=== PATIENT | female | born 1970 | race Caucasian/White ===

== ENCOUNTER 2017-08-04 03:00 | Emergency (ER) | payer MEDICARE, MEDICAID ==
[~2017-08-04] VITALS: Ht 180.3 cm; Wt 99.8 kg
[2017-08-04 04:50] LABS: Acetaminophen < 2.0 ug/mL (10-30)
[2017-08-04 08:32] LABS: Basophils # (auto) 0 uL; Basophils % (auto) 0.6 % (0.0-2.0); Eosinophils # (auto) 0.1 uL; Eosinophils % (auto) 0.9 % (0.0-7.0); Hemoglobin 12.5 g/dL (12.2-16.2); Lymphocytes # (auto) 1.7 uL; Lymphocytes % (auto) 22.4 % (10.0-50.0); Mean Corpuscular Hgb Conc. 32.1 g/dL (32.0-36.0); Mean Corpuscular Volume 96.5 fL (80.0-100.0); Monocytes # (auto) 0.9 uL; Monocytes % (auto) 12.1 % (0.0-12.0); Neutrophils # (auto) 4.7 uL; Nucleated Red Blood Cells % 0.6 %; Platelet Count (auto) 243 10^3/uL (140-450); Red Blood Cells 4.04 10^6/uL (4.0-5.20); Red Cell Distribution Width 14.2 % (11.8-14.3); White Blood Cell 7.4 10^3/uL (4.4-10.8)
[2017-08-04] MEDS ORDERED: ACETAMINOPHEN 325 MG TAB PO ONE (08:45)
[2017-08-04 10:32] LABS: Albumin 3.6 g/dL (3.4-5.0); BUN/Creatinine Ratio 22.9; Bilirubin, Total 0.4 mg/dL (0.2-1.0); Calcium 8.3 mg/dL (8.5-10.1); Potassium 3.9 mmol/L (3.5-5.1); Total Protein 7.7 g/dL (6.4-8.2)
[2017-08-04 16:20] LABS: Urine Bacteria NONE SEEN /hpf (None Seen); Urine Blood 1+ /uL (Negative); Urine Specific Gravity 1.015 (1.001-1.035); Urine WBC 2 /hpf (0 - 5)
[2017-08-04 16:29] LABS: Alcohol, Urine < 3.0 mg/dL (0-5); Amphetamine Screen, Urine NEGATIVE (NEGATIVE); Barbiturate Scree,Urine NEGATIVE (NEGATIVE); Benzodiazephine Screen, Urine NEGATIVE (NEGATIVE); Cannabinoid Screen, Urine NEGATIVE (NEGATIVE); Cocaine Screen, Urine NEGATIVE (NEGATIVE); Opiate Scree,Urine NEGATIVE (NEGATIVE); Phencyclidine Screen, Urine NEGATIVE (NEGATIVE)
[2017-08-04] MEDS ORDERED: traMADol HCL 50 MG TAB PO ONE (18:30)
[2017-08-05] MEDS ORDERED: CITA-77 PO (00:04)
[2017-08-05] MEDS ORDERED: QUET300T23 PO (00:04)
[2017-08-05] MEDS ORDERED: TRAZ100T2 PO (00:04)
[2017-08-05] MEDS ORDERED: CLON0.5T3 PO (00:04)
[2017-08-05] MEDS ORDERED: QUEtiapine FUMARATE 100 MG TAB ONE (00:36)
[2017-08-05] MEDS ORDERED: QUEtiapine FUMARATE 100 MG TAB PO ONE (00:45)
[2017-08-05 09:48] VITALS: BP 122/68
[2017-08-05] MEDS ORDERED: clonazePAM 0.5 MG TAB PO SCH (10:00)
[2017-08-05] MEDS ORDERED: CITALOPRAM HYDROBR 20 MG TAB PO SCH (10:00)
[2017-08-05] MEDS ORDERED: traZODone HCL 50 MG TAB PO SCH (22:00)
== END 2017-08-05 08:46 | disposition short-term general hospital (02) ==
LOC: EDBD 03:00 → ER 03:06
DX: F41.9 Anxiety disorder, unspecified (principal); R45.851 Suicidal ideations; F32.9 Major depressive disorder, single episode, unspecified; E78.5 Hyperlipidemia, unspecified; F12.10 Cannabis abuse, uncomplicated; M54.5 Low back pain
CPT/HCPCS: 36415; 80053; 80307; 80320; 80329; 81001; 85025